=== PATIENT | male | born 1985 | race Caucasian/White ===

== ENCOUNTER 2019-12-17 21:55 | Emergency (ER) | payer OTHER, SELFPAY ==
[2019-12-17 21:57] VITALS: BP 141/82; PULSE 76; RESP 18; TEMP 36.6; O2SAT 97
--- NOTE | 2019-12-17 22:28 | ED.VIS.GEN ---
History of Present Illness Chief Complaint: Numb/Ting Detail of Chief Complaint: Tingling all fingers bilaterally Informant: Patient Onset: Hours - 1 hour prior to presentation and 10 minutes after soft landing. Patient was skydiving. Patient states he juanjose dive when he was in the and has juanjose diet on a regular basis. Context: Sudden Onset Timing: Continuous Quality: Going right and left index finger, long finger, ring finger and little fing Location: Per above Current Severity: Mild Maximum Severity: Moderate Worsened by: Nothing Relieved by: Nothing Associated Symptoms: No associated symptoms Narrative: Patient is a 34-year-old ambidextrous male who presents with tingling in all of his fingers bilaterally after soft landing. He was skydiving. This occurred 10 minutes after he landed. He denies neck pain. He denies head pain or headache. He denies cardiac respiratory symptoms. He denies GI symptoms. He denies tingling or paresthesia in his lower extremity. He denies problems with walking or balance. He states this is never happened before. Prior similar symptoms: No Recent Illness/Hospitalization: No - Past Medical History (1) No significant past medical history Status: Acute Past Medical History - Allergies and Home Meds Allergies/Adverse Reactions: Allergies No Known Allergies Allergy (Verified 12/17/19 21:56) Primary Care Physician: [place] [place] [Primary Care Provider] - Prior records reviewed: No Past Medical History: None Surgical History: no surgical history Lives: Alone Smoking Status: Light Smoker (<10/day) Alcohol: None Drugs: None Review of Systems General: Reports: Weight loss - 5 to 7 pound weight loss at the beginning of the pandemic because of inability to access food.. Denies: Fever, Malaise, Sweats Eyes: Denies: Visual changes - bilaterally, Blurred Vision - bilaterally ENT: Denies: Bilateral ear pain Cardiovascular: Denies: Chest pain, Palpitations Respiratory: Denies: Dyspnea, Cough Gastrointestinal: Denies: Nausea, Vomiting Musculoskeletal: Denies: Myalgias, Arthralgias, Neck pain, Back pain, Swelling, Extremity Pain, -, - Skin: Denies: Rash, Wounds Neurological: Reports: Parasthesia. Denies: Headache, Weakness, Numbness, -, - Endocrine: Denies: Polyuria, Polydipsia Hematologic: Denies: Easy bruising, Easy bleeding Allergy: Denies: Uticaria Physical Exam Vital Signs/Narrative: Vital Signs Temp Pulse Resp BP Pulse Ox 12/17/19 21:57 97.8 F 76 18 141/82 H 97 Inital Vital Signs reviewed: Yes General: Well nourished, Well developed, No Acute Distress Head: Normocephalic, Atraumatic Eyes: Perrl, EOMI. Negative for: Pale conjunctiva, Scleral icterus ENT: Moist mucous membranes, No rhinorrhea Neck: Supple, Nontender, No lymphadenopathy, No JVD Cardiovascular: Regular rate, Regular rhythm, No murmurs, Normal S1, Normal S2 Respiratory: No distress, CTA bilaterally, Chest nontender Abdomen: Soft, Nontender, Nondistended, Normal bowel sounds Back: Nontender, Normal Inspection. Negative for: CVA tenderness Extremities: Nontender, No edema Skin: Normal color, No rash, No Trauma. Negative for: Cyanosis, Diaphoresis, Jaundice Neurological: Alert, Oriented x3, Cranial nerves II-XII grossly intact, Normal Strength, Normal Sensation, Normal DTR - DTR 2-3+ and symmetric. Negative Babinski sign or clonus. Psychological: Normal affect, Normal Mood Diagnostic/Tx/Re-eval Chest X-Ray - ED: Read by Radiologist, - - 5 view x-ray of cervical spine was interpreted by radiologist prior to my review. The films were reviewed by me and agree there is no abnormality. Impressions Cervical Spine X-Ray 12/17/19 22:54 IMPRESSION: Normal x-ray examination of the visualized cervical spine. Electronically Signed: Charlotte Morrison MD at 23:15 EDT , Service support , 12/17/19 22:54 Xray Cervical [Cerv Spine 4 or 5 Views] [RAD] Stat Laboratory Results 12/17/19 12/17/19 22:38 22:38 WBC 15.3 H RBC 5.01 Hgb 15.0 Hct 45.5 MCV 90.8 MCH 29.9 MCHC 33.0 RDW Std Deviation 40.0 RDW Coeff of Melvin 12.2 Plt Count 291 MPV 9.0 Immature Gran % (Auto) 0.500 Neut % (Auto) 74.8 H Lymph % (Auto) 14.6 L [place] % (Auto) 7.7 Eos % (Auto) 1.9 Baso % (Auto) 0.5 Absolute Neuts (auto) 11.4 H Absolute Lymphs (auto) 2.23 Nucleated RBC % 0 Sodium 140 Potassium 4.1 Chloride 105 Carbon Dioxide 27.0 Anion Gap 8 BUN 13 Creatinine 1.03 Estim Creat Clear Calc 12.03 Est GFR (MDRD) Af Amer 105 Est GFR (MDRD) Non-Af 87 BUN/Creatinine Ratio 12.6 Glucose 116 H Calcium 8.8 Count is elevated. This is a nonspecific abnormality. And what may be the cause. Patient does not have any infectious symptoms. - Medical Decision Making Will obtain cervical spine x-rays to assess intra-articular disc space, and to see if there is any spurring. Findings are not consistent with a central herniated disc. Electrolytes were obtained to determine if patient has hyponatremia or hypokalemia which may explain his tingling sensation. The tingling is not in a neuroanatomical distribution. ED Disposition - Plan for ED Patient: Disposition: Home or Assisted Living Diagnosis: TINGLING FINGERS, Paresthesia of finger Instructions: ED Paraesthesias [facility]errals: [facility] [Primary Care Provider] - 3-5 Days if not improving
[2019-12-17 22:44] LABS: Absolute Lymphocyte Count 2.23 X10^3/uL (0.83-4.51); Absolute Neutrophil Count 11.4 X10^3/uL (2.0-7.7); Basophil# 0.08 X10^3/uL; Basophil% 0.5 % (0-1); Eosinophil# 0.29 X10^3/uL; Eosinophils% 1.9 % (0-5); Hematocrit 45.5 % (40-54); Lymphocyte # 2.23 X10^3/ul (4.0); Lymphocyte % 14.6 % (19-41); Mean Corpuscular Hgb 29.9 pg (27.0-32.0); Mean Corpuscular Volume 90.8 fL (80-94); Monocyte# 1.18 X10^3/uL; Monocyte% 7.7 % (0-10); NRBC Flagged by Analyzer 0 % (0-5); Neutrophil % 74.8 % (47-70); Platelet Count 291 K/mm3 (150-450); RBC Distribution Width CV 12.2 % (11.6-14.6); Red Blood Count 5.01 M/mm3 (4.6-6.2); White Blood Count 15.3 K/mm3 (4.4-11.0)
--- NOTE | 2019-12-17 22:54 | RAD_ITS ---
STUDY: X-RAY - CERVICAL SPINE REASON FOR EXAM: Male, 34 years old. Bilateral arm numbness after skydiving TECHNIQUE: 6 view(s) of the cervical spine were obtained. COMPARISON: None FINDINGS: Normal anterior atlantoaxial articulation. Normal odontoid process. Normal cervical lordosis. Normal vertebral bodies and endplates. Normal disc space heights. Normal visualized intervertebral neuroforamina. The soft tissue structures are unremarkable. RAD/Cerv Spine 4 or 5 Views IMPRESSION: Normal x-ray examination of the visualized cervical spine. Electronically Signed: Charlotte Morrison MD at 23:15 EDT , Service support ,
[2019-12-17 23:10] LABS: Anion Gap 8 (5-15); BUN 13 mg/dL (7-18); BUN/Creat Ratio 12.6 RATIO (10-20); Calcium,Total 8.8 mg/dL (8.5-10.1); Chloride 105 mmol/L (98-107); Creatinine, Serum 1.03 mg/dL (0.70-1.30); EST Glomerular Filtration Rate 87 mL/min (>60); Est Glom Filt Rate - Afr Amer 105 mL/min (>60); Estimated Creatinine Clearance 12.03 ml/min; Glucose 116 mg/dL (74-106); Potassium 4.1 mmol/L (3.5-5.1); Sodium Level 140 mmol/L (136-145)
[2019-12-18 00:14] VITALS: BP 123/74; PULSE 71; RESP 18; O2SAT 98
--- NOTE | 2019-12-18 00:15 | ED.RN ---
THIS NURSE REVIEWED D/C INSTRUCTIONS WITH PT. PT VERBALIZED UNDERSTANDING OF INSTRUCTIONS. IV D/C. IV CATHETER INTACT. PT TOLERATED WELL.
== END 2019-12-18 00:39 | disposition home or self-care (01) ==
LOC: ED 12-18 00:17
PROVIDERS: Emergency Provider Emergency Medicine
DX: R20.2 Paresthesia of skin (principal); F17.200 Nicotine dependence, unspecified, uncomplicated
CPT/HCPCS: 72050; 80048; 85025; 99284; A4216